=== PATIENT | female | born 1955 | race Caucasian/White ===

== ENCOUNTER 2016-10-14 11:09 | Emergency (ER) | payer MEDICAID ==
[~2016-10-14] VITALS: Ht 162.6 cm; Wt 150.0 kg
[~2016-10-14 11:09] MED LIST: FERR1TAB24 PO; MEDR150D9 IM; NAPR375T PO
[2016-10-14] MEDS ORDERED: IBUP-1685 PO (11:21)
[2016-10-14] MEDS ORDERED: ATOR10TA69 PO (11:21)
[2016-10-14] MEDS ORDERED: ASPI-12 PO (11:21)
[2016-10-14] MEDS ORDERED: AMLO-511 PO (11:22)
[2016-10-14] MEDS ORDERED: GuaiFENesin/D-METHORPHAN [SUGAR-FREE] 200-20MG/10 ML SYRUP UDCUP PO ONE (12:15)
[2016-10-14] MEDS ORDERED: IBUPROFEN 800 MG TABLET PO ONE (12:15)
[2016-10-14 13:13] LABS: INFLUENZA TYPE B NEGATIVE FOR TYPE B (NEGATIVE)
[2016-10-14 13:43] VITALS: BP 142/77
== END 2016-10-14 13:54 | disposition home or self-care (01) ==
LOC: EMS 11:10
DX: J06.9 Acute upper respiratory infection, unspecified (principal); I10 Essential (primary) hypertension
CPT/HCPCS: 87804; 99284